=== PATIENT | male | born 1955 | race Caucasian/White ===

== ENCOUNTER 2023-02-23 19:06 | Inpatient (IN) | payer MEDICARE, OTHER ==
[~2023-02-23] VITALS: Ht 175.3 cm; Wt 58.1 kg
[~2023-02-23 19:06] MED LIST: ACET-868 PO; Divalproex Sodium PO; LORA1TAB PO; MAG30ORA PO; MAGN400O21 PO; NICO1PAT28 TD; TEMA15CA PO; [UNRECOGNIZED DRUG - CODE] PO
--- NOTE | 2023-02-23 19:20 | NUR ---
bib39 from [facility] for weakness, tachycardic, incontinent to urine. Patient is AAOX0. Trying to fight everyone instilling care. Safety measures observed. Attached to monitor. Vitals checked.
[2023-02-23] MEDS ORDERED: VANCOMYCIN 1 GM in IV D5W 250 ML IV ONE (19:30)
[2023-02-23] MEDS ORDERED: CEFEPIME 1 GM in IV D5W 50 ML IV ONE (19:30)
[2023-02-23] MEDS ORDERED: ACETAMINOPHEN 650 MG/SUPP.RECT RC ONE ×2 (19:30→19:56)
--- NOTE | 2023-02-23 19:30 | NUR ---
SEEN BY DR ISBELL AT BEDSIDE
--- NOTE | 2023-02-23 19:49 | NUR ---
Tony hoyos in [facility] - 02/23/23 at 1953 by BECKI CAMERON #20G S/L BLOOD COLLECTED AND SENT TO LAB
--- NOTE | 2023-02-23 19:50 | NUR ---
URINE COLLECTED AND SENT TO LAB
--- NOTE | 2023-02-23 19:52 | NUR ---
IV REYMUNDO G18 INSERTED ON RIGHT AC. BLOOD DRAWN AND SENT TO LAB
--- NOTE | 2023-02-23 19:52 | NUR ---
COVID ANTIGEN SWAB COLLECTED AND SENT TO LAB
--- NOTE | 2023-02-23 19:53 | NUR ---
EKG DONE, STRIP ATTACHED TO CHART
--- NOTE | 2023-02-23 19:53 | NUR ---
URINE SPECIMEN SENT TO LAB
[2023-02-23] MEDS ORDERED: VANCOMYCIN 1 GM VIAL ONE (19:56)
[2023-02-23] MEDS ORDERED: CEFEPIME 1 GM VIAL ONE (19:56)
[2023-02-23 20:00] LABS: BASOPHILS % (AUTO) 0.2 % (0.0-2.0); EOSINOPHILS % (AUTO) 0.1 % (0.0-6.0); HEMATOCRIT 47 % (39-51); HEMOGLOBIN 15.1 g/dL (13.5-17.5); LYMPHOCYTES # (AUTO) 0.4 K/uL (0.8-4.8); MEAN CORPUSCULAR HGB CONC 32 g/dl (31.0-36.0); MEAN CORPUSCULAR VOLUME 93 fL (80-96); MONOCYTES # (AUTO) 0.4 K/uL (0.1-1.30); MONOCYTES % (AUTO) 5.1 % (2.0-12.0); NEUTROPHILS # (AUTO) 7.9 K/uL (1.8-8.9); NEUTROPHILS % (AUTO) 89.6 % (43.0-81.0); PLATELET COUNT (AUTO) 203 K/uL (150-450); RED BLOOD CELL COUNT(AUTO) 5.03 MIL/uL (4.5-6.0); WHITE BLOOD COUNT (AUTO) 8.8 K/uL (4.3-11.0)
[2023-02-23] MEDS ORDERED: IV NS 0.9% 2,000 ML IV ONE (20:00)
[2023-02-23 20:14] LABS: CALCIUM, SERUM 9.5 mg/dL (8.5-10.1); CARBON DIOXIDE 29 mmol/L (21-32); CHLORIDE 106 mmol/L (98-107); CREATININE 1.1 mg/dL (0.6-1.3); GLUCOSE 152 mg/dL (74-106); POTASSIUM 3.8 mmol/L (3.5-5.1); SODIUM SERUM 142 mmol/L (136-145); UREA NITROGEN, BLOOD 21 mg/dL (7-18)
[2023-02-23 20:17] LABS: BILIRUBIN,URINE 1+ (NEGATIVE); COLOR,URINE YELLOW (YELLOW); LEUKOCYTE ESTERASE ,URINE NEGATIVE (NEGATIVE); NITRITE, URINE NEGATIVE (NEGATIVE); PROTEIN,URINE TRACE mg/dl (NEGATIVE); UGLUCOSE TRACE mg/dL (NEGATIVE)
[2023-02-23 20:28] LABS: ALANINE AMINOTRANSFERASE 16 U/L (12-78); ALBUMIN 3.6 g/dL (3.4-5.0); ALKALINE PHOSPHATASE 108 U/L (46-116); ASPARTATE AMINOTRANSFERASE 10 U/L (15-37); BILIRUBIN,DIRECT 0.2 mg/dL (0.0-0.2); BILIRUBIN,TOTAL 0.9 mg/dL (0.2-1.0); TOTAL PROTEIN, SERUM 7.8 g/dL (6.4-8.2)
--- NOTE | 2023-02-23 21:05 | NUR ---
REPEAT URINE SPECIMEN SENT TO LAB
--- NOTE | 2023-02-23 21:14 | NUR ---
TRIED TO GIVE REPORT, SABINO MARKS STILL NOT AVAILABLE
[2023-02-23 21:33] LABS: BACTERIA,URINE None seen /HPF (None Seen); MUCUS,URINE Few /LPF (None Seen); RBC,URINE 0-2 /HPF (0-2); SQUAMOUS EPITHELIAL CELL,UR 0-2 /HPF (None Seen); WBC,URINE 0-2 /HPF (0-3)
[2023-02-23 22:30] VITALS: BP 97/58
--- NOTE | 2023-02-23 22:30 | NUR ---
burnt lime drawer opening notes A 67 y/o male came from [facility] admitted for dx sepsis ,pts is alert x1-2 on room air sating 00% v/s stable afebrile pts is no known allergy , on ivf of ns at 75 cc/hr infusing well iv on right ac G3 20 intact and patent all due meds give as ordered, v/s stable afebtile , all needs attended too call light with in reach ,on tele monitor SR on the monitor kept pts comfortable.
--- NOTE | 2023-02-23 22:37 | NUR ---
TRANSFER TO ROOM VIA ACLS PROTOCOL
[2023-02-23] MEDS ORDERED: Z GUARD REMEDY 4 OZ OINT TP PRN (23:00)
[2023-02-23] MEDS ORDERED: ONDANSETRON HCL/PF 4 MG/2 ML VIAL IVP PRN (23:00)
[2023-02-23] MEDS ORDERED: ACETAMINOPHEN 325 MG TABLET PO PRN (23:00)
[2023-02-23] MEDS ORDERED: TEMAZEPAM 15 MG CAPSULE PO PRN (23:00)
[2023-02-23] MEDS ORDERED: HYDROCODONE/APAP 5/325MG TABLET PO PRN (23:00)
[2023-02-23] MEDS ORDERED: MAGNESIUM HYDROXIDE 30 ML UDC PO PRN (23:00)
[2023-02-23] MEDS ORDERED: MAG HYDROX/AL HYDROX/SIMETH 30 ML UDC PO PRN (23:00)
[2023-02-23] MEDS ORDERED: VALPROATE 500 MG/5 ML VIAL IV ONE (23:24)
[2023-02-23] MEDS: VALPROATE 500 MG in IV D5W 100 ML IV SCH (23:30)
[2023-02-24 04:00] VITALS: BP 91/57
[2023-02-24] MEDS: IV NS 0.9% 1,000 ML IV PRN ×2 (05:50→17:48)
--- NOTE | 2023-02-24 06:41 | NUR ---
telephone operator receptionist notes Pts remain in bed awake SR on the monitor remains on ivf ns at 75cc/hr .all needs attended too , call light within reach , will endorse to rn day shift for continuity of care.
[2023-02-24 07:02] LABS: BASOPHILS % (AUTO) 0.3 % (0.0-2.0); EOSINOPHILS % (AUTO) 0.5 % (0.0-6.0); HEMATOCRIT 38 % (39-51); HEMOGLOBIN 12.7 g/dL (13.5-17.5); LYMPHOCYTES # (AUTO) 1.1 K/uL (0.8-4.8); LYMPHOCYTES % (AUTO) 15.1 % (20.0-44.0); MEAN CORPUSCULAR HGB CONC 33 g/dl (31.0-36.0); MEAN CORPUSCULAR VOLUME 92 fL (80-96); MONOCYTES # (AUTO) 0.4 K/uL (0.1-1.30); MONOCYTES % (AUTO) 5.1 % (2.0-12.0); NEUTROPHILS # (AUTO) 5.6 K/uL (1.8-8.9); PLATELET COUNT (AUTO) 165 K/uL (150-450); RED BLOOD CELL COUNT(AUTO) 4.15 MIL/uL (4.5-6.0); WHITE BLOOD COUNT (AUTO) 7.1 K/uL (4.3-11.0)
--- NOTE | 2023-02-24 07:30 | NUR ---
RN OPENING NOTE PT RECEIVED IN BED ON RA TOLERATING WELL WITH NO SIGNS OF DISTRESS OR LABORED BREATHING. PT IS A/OX2 AND NON VERBAL AND ON TELE MONITOR. PT IS ON REGULAR DIET. IV ACCESS R AC INFUSING WITH NS @75ML/HR. BED IS LOCKED IN LOWEST POSITION X2 BED RAILS UP CALL SEGOVIA IS WITHIN REACH AND ALL HOSPITAL SAFETY MEASURES ARE IN PLACE. WILL CONTINUE TO MONITOR THIS SHIFT.
[2023-02-24 07:43] LABS: THYROID STIMULATING HORMONE 2.098 uIU/mL (0.358-3.74)
[2023-02-24 07:46] LABS: CALCIUM, SERUM 8.2 mg/dL (8.5-10.1); CREATININE 0.6 mg/dL (0.6-1.3); MAGNESIUM 1.9 mg/dL (1.8-2.4); PHOSPHORUS 3.1 mg/dL (2.5-4.9); POTASSIUM 3.3 mmol/L (3.5-5.1)
[2023-02-24 08:00] VITALS: BP 113/48
[2023-02-24] MEDS: CEFEPIME 1 GM in IV D5W 50 ML IV SCH ×3 (08:36→23:00)
[2023-02-24] MEDS ORDERED: CEFEPIME 1 GM VIAL IM SCH (09:00)
[2023-02-24] MEDS ORDERED: IV NS 0.9% 250 ML IV PRN (09:00)
[2023-02-24] MEDS: VANCOMYCIN 1 GM in IV D5W 250 ML IV SCH ×2 (09:14→20:48)
[2023-02-24] MEDS: PANTOPRAZOLE 40 MG VIAL IV SCH (09:16)
[2023-02-24] MEDS ORDERED: POTASSIUM CHLORIDE 20 MEQ TAB.PRT.SR PO ONE (10:00)
[2023-02-24] MEDS: VALPROATE 500 MG in IV D5W 100 ML IV SCH ×2 (10:37→20:59)
[2023-02-24 12:00] VITALS: BP 120/52
[2023-02-24 16:00] VITALS: BP 128/70
[2023-02-24] MEDS: LORAZEPAM INJ 2 MG/ML VIAL IV PRN (17:48)
--- NOTE | 2023-02-24 18:21 | NUR ---
RN NOTE: IV ACCESS R AC INFILTRATED; MULTIPLE ATTEMPTS TO INSERT NEW PIV UNSUCCESSFUL. WAITING FOR MIDLINE NURSE.
--- NOTE | 2023-02-24 19:00 | NUR ---
RN NOTES: RECEIVED AWAKE ON BED,A/OX1 TO SELF ONLY, NON VERBAL ONLY COOING AND HUMMING SOUND, ON ROOM AIR, FOR TELE MONITOR BUT PATIENT REFUSED AND REMOVING HIS IV TUBING AND HYDRAULICS ENGINEER, ON BILATERAL SOFT WRIST RESTRAINT(RENEW ON 02/25 AT 1642), PER RN HE WAS ALREADY LISTED FOR MIDLINE INSERTION, BUT NOT SURE WHAT TIME IT WILL BE DONE.TO RESUME IVF OF NS AT 75 ML/HR ONCE IV SITE OBTAINED. ON CLOSE WATCH, HIGH RISK FOR FALL.
[2023-02-24 20:00] VITALS: BP 134/85
--- NOTE | 2023-02-24 20:20 | NUR ---
RN NOTES: FOR MID LINE INSERTION, CN HELP TO INSERT IV CANNULA, 3 ATTEMPTS MADE, HARD STICK, ABLE TO INSERT ON RH G#22, PATENT GOOD BACK FLOW, IV/ATB GIVEN.
--- NOTE | 2023-02-24 23:50 | NUR ---
RN NOTES: ON CLOSE VISUAL CHECK , HE REFUSED FOR HIS TELE-MONITOR, ASLEEP AT SHORT INTERVALS, DUE IV/ATB GIVEN, NO BEHAVIORAL CHANGES NOTED.
[2023-02-25] VITALS: BP 159/82
--- NOTE | 2023-02-25 01:24 | NUR ---
RN NOTES: FOR MIDLINE INSERTION BUT UNCOOPERATIVE AFTER HE WAS AWAKEN, HE STARTED TO GET AGITATED, HE IS KICKING HIS FOOT ON THE FOOT BOARD, PRN FOR SLEEP GIVEN, CN AWARE. HE TOOK IT WITH APPLE SAUCE.
--- NOTE | 2023-02-25 02:10 | NUR ---
RN NOTES: MIDLINE INSERTED BY: DAR COHEN APRN ON YONIS(RIGHT BRACHIAL VEIN) SINGLE LUMEN G#18.
--- NOTE | 2023-02-25 02:26 | NUR ---
RN NOTES: PLACED PILLOW ON THE FOOT BOARD AREA, TO PREVENT HIM FROM KICKING HIS FOOT, ABLE TO SLEEP AND REST, IVF ON NS AT 75 ML/HR CONTINUE, DUE IV/ATB GIVEN.
--- NOTE | 2023-02-25 03:06 | NUR ---
RN NOTES: HE GETS IRRITATED WHENEVER HE FEELS WET AND HE HAD URINE IN HIS BRIEF, CLEAN AND CHANGE, CONDOM CATH INSERTED.
[2023-02-25 04:00] VITALS: BP 142/85
[2023-02-25 05:48] LABS: BASOPHILS % (AUTO) 0.4 % (0.0-2.0); EOSINOPHILS % (AUTO) 0.9 % (0.0-6.0); HEMATOCRIT 41 % (39-51); HEMOGLOBIN 13.5 g/dL (13.5-17.5); LYMPHOCYTES # (AUTO) 0.8 K/uL (0.8-4.8); LYMPHOCYTES % (AUTO) 14.7 % (20.0-44.0); MEAN CORPUSCULAR HGB CONC 33 g/dl (31.0-36.0); MEAN CORPUSCULAR VOLUME 93 fL (80-96); MONOCYTES # (AUTO) 0.3 K/uL (0.1-1.30); MONOCYTES % (AUTO) 5.6 % (2.0-12.0); NEUTROPHILS # (AUTO) 4.5 K/uL (1.8-8.9); NEUTROPHILS % (AUTO) 78.4 % (43.0-81.0); PLATELET COUNT (AUTO) 171 K/uL (150-450); RED BLOOD CELL COUNT(AUTO) 4.37 MIL/uL (4.5-6.0); WHITE BLOOD COUNT (AUTO) 5.7 K/uL (4.3-11.0)
[2023-02-25 06:03] LABS: CREATININE 0.6 mg/dL (0.6-1.3); PHOSPHORUS 3.1 mg/dL (2.5-4.9); POTASSIUM 3.3 mmol/L (3.5-5.1)
--- NOTE | 2023-02-25 06:44 | NUR ---
RN NOTES: AWAKE, KEPT IN HIG FOWLERS POSITION, REFUSED IVF, WILL CONTINUE LATER, UNABLE TO PUT BACK SHELLFISH MEAT SEPARATOR OPERATOR EVERYTIME WE PUT IT, EVEN WITH RESTRAIN HE WAS ABLE TO REMOVE IT, CONTINUE TO MONITOR SOFT RESTRAIN IN BILATERAL HANDS, GOOD CIRCULATION, YONIS ML INTACT AND PATENT, VOIDED 4XM, ASPIRATION PRECAUTION OBSERVED, ENDORSED FOR CONTINUITY OF CARE. Addendum: 02/25/23 at 0658 by JALEEL FELIZ RN ADDED NOTES: BLOOD RESULT IN, ENDORSED TO F/U WITH MD [email or web address].
--- NOTE | 2023-02-25 07:34 | NUR ---
TITLE ABSTRACTOR NOTE PATIENT IN BED ALERT X1 AWAKE ON , ON 2L NC NO SOB NOTED AT THIS TIME VEERY RESTLESS TRYING TO REMOVE ALL LINES AND GET OUT OFF BED , WITH SOFT RESTRAIN ORDERED STILL REMOVE TELE MONITOR RT UPPER ARM MID LINE AND RT HAND HL INTACT, ON IVF ORDERED, BED IN LOWEST AND LOCKED POSITION , SAFETY MEASURE IMPLEMENTED, WILL MONITOR
[2023-02-25 08:00] VITALS: BP 138/79
[2023-02-25] MEDS: PANTOPRAZOLE 40 MG VIAL IV SCH (08:25)
[2023-02-25] MEDS: CEFEPIME 1 GM in IV D5W 50 ML IV SCH ×2 (08:25→15:56)
[2023-02-25] MEDS: VANCOMYCIN 1 GM in IV D5W 250 ML IV SCH ×2 (08:52→20:13)
[2023-02-25] MEDS: ENSURE ENLIVE 237 ML LIQUID (VANILLA) PO SCH ×2 (09:00→16:23)
--- NOTE | 2023-02-25 09:54 | NUR ---
teletypesetter note reported to dr holm that patient removing tele monitor ordered ok to d\c telemetry, will f\u
[2023-02-25] MEDS: VALPROATE 500 MG in IV D5W 100 ML IV SCH (09:56)
[2023-02-25] MEDS ORDERED: POTASSIUM CHLORIDE 20 MEQ POWDER PACKET PO SCH (10:00)
--- NOTE | 2023-02-25 11:25 | NUR ---
teleradiologist note noted cough while eating ,changed to nectar thick liquid,rn support representative Ines at bedside aware of it also notified that patient still very agitated and trying to get out off bed and yelling most of the time,reported to Dana rn not ,Patient removed rt hand hl .will place mittens restrain . will monitor
[2023-02-25 12:00] VITALS: BP 135/70
[2023-02-25] MEDS: NICOTINE PATCH (21MG) 21 MG PATCH.TD24 TD SCH (12:27)
[2023-02-25] MEDS ORDERED: QUETIAPINE FUMARATE 25 MG TABLET PO ONE ×2 (12:30→21:00)
[2023-02-25] MEDS ORDERED: TEMAZEPAM 15 MG CAPSULE PO PRN (12:30)
--- NOTE | 2023-02-25 15:01 | NUR ---
brady lopez note per jessica lewis to place mitnikko restrain ,still trying to remove all lines Addendum: 02/25/23 at 1543 by LUCIANA BENITEZ RN condom cath placed as tolerated
[2023-02-25 16:00] VITALS: BP 136/80
--- NOTE | 2023-02-25 18:27 | NUR ---
senior telecommunications specialist note patient in bed awake alert with confusion and agitation trying to get out off bed , fed patient, able to eat6 75 % of food ,keep hob elevated, aspiration precaution observed , removed mittens from patient while eating checked for circulation , skin warm and dry ,bed alarm os on, safety measure implemented on 2l nc no sob noted at this time, rt upper arm mid line in place and flushed well bed in lowest and locked position, will cont to monitor
--- NOTE | 2023-02-25 19:48 | NUR ---
ALLOPATHIC DOCTOR OPENING NOTES RECEIVED PATIENT IN BED, AWAKE, ALERT X1-2 WITH CONFUSION AND VERBALLY RESPONSIVE. ON 2L/MIN VIA N/C AND PT TOLERATED WELL. CONTINUOUSLY TRIED TO GET UP FROM THE BED. VERY RESTLESS. BOTH MITTENS ON. IV ACCESS ON RT UPPER ARM MID LINE INTACT AND PATENT. RUNNING NS AT 75CC/HR. NO C/O PAIN OR DISCOMFORT NO CUTE DISTRESS. ALL SAFETY MEASURES IN PLACE. BED IN LOWEST AND LOCKED POSITION. SIDE RAILS UP X3, PLACE CALL LIGHT WITH IN REACH. WILL CONTINUE TO MONITOR.
[2023-02-25] MEDS: DIVALPROEX SODIUM 500 MG TABLET.DR PO SCH (20:37)
[2023-02-25] MEDS ORDERED: VALPROIC ACID 250 MG/5 ML UDC PO SCH (21:00)
--- NOTE | 2023-02-25 21:04 | NUR ---
RN NOTES: NOTIFIED DR. STEWART, PT STILL VERY AGITATED, BOTH MITTENS ON. TRIED TO GET UP FROM THE BED. DR. STEWART ORDERED- ACUTE SOFT BILATERAL RESTRAINTS ON AND SEROQUEL 25 MG TAB ONE TIME. ORDER NOTED AND CARRIED OUT.
[2023-02-25 22:00] VITALS: BP 124/77
[2023-02-25] MEDS: IV NS 0.9% 1,000 ML IV PRN (22:52)
[2023-02-26] MEDS: CEFEPIME 1 GM in IV D5W 50 ML IV SCH ×3 (00:24→16:09)
[2023-02-26 04:00] VITALS: BP 96/63
--- NOTE | 2023-02-26 06:39 | NUR ---
FLIGHT LINE SERVICE ATTENDANT CLOSING NOTES PATIENT IN BED, AWAKE, ALERT X1-2 WITH CONFUSION AND VERBALLY RESPONSIVE. ON 2L/MIN VIA N/C AND PT TOLERATED WELL. O2 SAT 92%. IV ACCESS ON RT UPPER ARM MID LINE INTACT AND PATENT. RUNNING NS AT 75CC/HR. NO C/O PAIN OR DISCOMFORT NO CUTE DISTRESS. BILATERAL SOFT RESTRAINTS ON. RELEASED Q 2 HOURS TO ASSESS THE CIRCULATION. ALL DUE MEDS GIVEN ORDERED. ALL SAFETY MEASURES IN PLACE. BED IN LOWEST AND LOCKED POSITION. SIDE RAILS UP X3, PLACE CALL LIGHT WITH IN REACH. WILL ENDORSE TO MORNING SHIFT NURSE.
[2023-02-26 08:04] LABS: BASOPHILS % (AUTO) 0.2 % (0.0-2.0); HEMATOCRIT 42 % (39-51); HEMOGLOBIN 14.2 g/dL (13.5-17.5); LYMPHOCYTES # (AUTO) 0.9 K/uL (0.8-4.8); LYMPHOCYTES % (AUTO) 15.1 % (20.0-44.0); MEAN CORPUSCULAR HGB CONC 34 g/dl (31.0-36.0); MEAN CORPUSCULAR VOLUME 91 fL (80-96); MONOCYTES # (AUTO) 0.5 K/uL (0.1-1.30); MONOCYTES % (AUTO) 8.5 % (2.0-12.0); NEUTROPHILS # (AUTO) 4.3 K/uL (1.8-8.9); NEUTROPHILS % (AUTO) 75.2 % (43.0-81.0); PLATELET COUNT (AUTO) 174 K/uL (150-450); RED BLOOD CELL COUNT(AUTO) 4.66 MIL/uL (4.5-6.0); WHITE BLOOD COUNT (AUTO) 5.8 K/uL (4.3-11.0)
[2023-02-26 08:39] LABS: CALCIUM, SERUM 9.1 mg/dL (8.5-10.1); CREATININE 0.6 mg/dL (0.6-1.3); MAGNESIUM 2.1 mg/dL (1.8-2.4); PHOSPHORUS 3.7 mg/dL (2.5-4.9); POTASSIUM 3.2 mmol/L (3.5-5.1)
[2023-02-26] MEDS: ENSURE ENLIVE 237 ML LIQUID (VANILLA) PO SCH ×2 (08:51→17:47)
[2023-02-26] MEDS ORDERED: PANTOPRAZOLE 40 MG/PACK PACK PO SCH (09:00)
[2023-02-26] MEDS: LORAZEPAM INJ 2 MG/ML VIAL IV PRN (09:09)
[2023-02-26] MEDS: NICOTINE PATCH (21MG) 21 MG PATCH.TD24 TD SCH (09:14)
[2023-02-26] MEDS: DIVALPROEX SODIUM 500 MG TABLET.DR PO SCH (09:14)
[2023-02-26] MEDS: VANCOMYCIN 1 GM in IV D5W 250 ML IV SCH (09:38)
[2023-02-26] MEDS ORDERED: POTASSIUM CL. PREMIX PERIPHER. 50 ML IV SCH (10:30)
[2023-02-26] MEDS ORDERED: AMOX500T2 PO (11:37)
[2023-02-26 12:00] VITALS: BP 96/63
--- NOTE | 2023-02-26 18:13 | NUR ---
RN NOTES supervisor fleshing ARRIVED FOR TRANSPORT TO [facility] , PICC LINE INTACT REPORT UPPER ARM, CONDUM CATH D/C SITE IS CLEAR CLEAN DRY, INTACT NO REDNESS NO IRRITATION NOTED ON PRIVATE AREAS, REPORT GIVEN TO LIA GALLO , SAFE TRANSFER FROM [facility] TO EMT [facility], TO AMBULANCE
--- NOTE | 2023-02-26 18:26 | NUR ---
RN NOTES PT TRANSFERRED TO [facility] [phone] REPORT GIVEN TO RN AND GIVEN CALL BACK # WITH ANY OTHERS QUESTIONS.
== END 2023-02-26 18:47 | DRG 871 ==
LOC: ER 19:28 → TELE1 21:38 → MEDSG1 02-25 09:25
PROVIDERS: ADMIT Nurse Practitioner Acute Care; ATTEND Nurse Practitioner Acute Care
PROC: 05H933Z Insertion of Infusion Device into Right Brachial Vein, Percutaneous Approach (ICD-10-PCS; principal; 2023-02-25)
DX: A41.9 Sepsis, unspecified organism (principal); G92.8 Other toxic encephalopathy; J69.0 Pneumonitis due to inhalation of food and vomit; F03.93 Unspecified dementia, unspecified severity, with mood disturbance; E87.20 Acidosis, unspecified; Z20.822 Contact with and (suspected) exposure to COVID-19; K21.9 Gastro-esophageal reflux disease without esophagitis; R32 Unspecified urinary incontinence; G40.909 Epilepsy, unspecified, not intractable, without status epilepticus; M19.90 Unspecified osteoarthritis, unspecified site; F17.200 Nicotine dependence, unspecified, uncomplicated; F20.9 Schizophrenia, unspecified; Z79.899 Other long term (current) drug therapy; Z87.820 Personal history of traumatic brain injury; Z98.890 Other specified postprocedural states; G93.89 Other specified disorders of brain; F31.9 Bipolar disorder, unspecified
CPT/HCPCS: 36415; 71045-TC; 80048-TC; 80061-TC; 80076-TC; 80202-TC; 81001; 83605-TC; 83735-TC; 83880; 84100-TC; 84443-TC; 84484-TC; 85025-TC; 85730-TC; 87040-TC; 87081-TC; 87086-TC; 92526; 92611-TC; A4223; A4349; C9113; C9803; G0378; J0692; J2060; J3370; J3490; J7030; J7050; J7060

== ENCOUNTER 2023-02-26 22:13 | Inpatient (IN) | payer MEDICARE, OTHER ==
[~2023-02-26] VITALS: Ht 167.6 cm; Wt 55.8 kg
[~2023-02-26 22:13] MED LIST changes: +AMOX500T2 PO
--- NOTE | 2023-02-26 22:29 | NUR ---
ANIRUDH FROM [facility] C/O AGGITATION TO RESIDENTS AND STAFF. HX BIPOLAR, SCHIZOPHRENIA. PT D/C TODAY [facility] FOR SEPSIS. PT DEAF. TOLERATING R/A WELL WITH NO RESP DISTRESS. SAFETY MEASURES IN PLACE.
--- NOTE | 2023-02-26 23:20 | NUR ---
COVID SWAB DONE AND SENT TO LAB
--- NOTE | 2023-02-26 23:25 | NUR ---
PT UNABLE TO PROVIDE URINE AT THIS TIME.
--- NOTE | 2023-02-26 23:25 | NUR ---
PT RECEIVED IN BED, AWAKE, A/O X1, DEAF; ABLE TO READ LIPS. LAB AT BEDSIDE
--- NOTE | 2023-02-26 23:32 | NUR ---
[employer]S CLERK AT PT'S BEDSIDE
[2023-02-27 00:08] LABS: CALCIUM, SERUM 9.4 mg/dL (8.5-10.1); CARBON DIOXIDE 26 mmol/L (21-32); CHLORIDE 110 mmol/L (98-107); CREATININE 0.9 mg/dL (0.6-1.3); GLUCOSE 157 mg/dL (74-106); POTASSIUM 3.5 mmol/L (3.5-5.1); SODIUM SERUM 145 mmol/L (136-145); UREA NITROGEN, BLOOD 8 mg/dL (7-18)
[2023-02-27 00:23] LABS: ACETAMINOPHEN < 10 ug/ml (10-30); ALANINE AMINOTRANSFERASE 13 U/L (12-78); ALBUMIN 2.8 g/dL (3.4-5.0); ALKALINE PHOSPHATASE 75 U/L (46-116); ASPARTATE AMINOTRANSFERASE 12 U/L (15-37); BILIRUBIN,DIRECT 0.1 mg/dL (0.0-0.2); BILIRUBIN,TOTAL 0.5 mg/dL (0.2-1.0); TOTAL PROTEIN, SERUM 6.5 g/dL (6.4-8.2)
[2023-02-27 01:06] LABS: ALCOHOL, BLOOD < 3 mg/dL (0-0)
[2023-02-27 01:17] LABS: BASOPHILS % (AUTO) 0.3 % (0.0-2.0); EOSINOPHILS % (AUTO) 0.6 % (0.0-6.0); HEMATOCRIT 42 % (39-51); LYMPHOCYTES # (AUTO) 0.9 K/uL (0.8-4.8); LYMPHOCYTES % (AUTO) 17.5 % (20.0-44.0); MEAN CORPUSCULAR HGB CONC 34 g/dl (31.0-36.0); MEAN CORPUSCULAR VOLUME 90 fL (80-96); MONOCYTES # (AUTO) 0.4 K/uL (0.1-1.30); MONOCYTES % (AUTO) 8.5 % (2.0-12.0); NEUTROPHILS # (AUTO) 3.5 K/uL (1.8-8.9); NEUTROPHILS % (AUTO) 73.1 % (43.0-81.0); PLATELET COUNT (AUTO) 177 K/uL (150-450); WHITE BLOOD COUNT (AUTO) 4.9 K/uL (4.3-11.0)
--- NOTE | 2023-02-27 02:38 | NUR ---
URINE COLLECTED AND SENT TO LAB
[2023-02-27 04:05] LABS: BILIRUBIN,URINE NEGATIVE (NEGATIVE); COLOR,URINE YELLOW (YELLOW); LEUKOCYTE ESTERASE ,URINE NEGATIVE (NEGATIVE); NITRITE, URINE NEGATIVE (NEGATIVE); PROTEIN,URINE NEGATIVE (NEGATIVE); UGLUCOSE NEGATIVE (NEGATIVE); UROBILINOGEN,URINE 0.2 EU/dL (0.2)
[2023-02-27 04:54] LABS: BACTERIA,URINE Few /HPF (None Seen); RBC,URINE 0-2 /HPF (0-2); SQUAMOUS EPITHELIAL CELL,UR Few /HPF (None Seen); WBC,URINE NONE SEEN /HPF (0-3)
[2023-02-27 04:55] LABS: COARSE GRANULAR CASTS,URINE Few /LPF (None Seen)
[2023-02-27] MEDS ORDERED: DOXYCYCLINE HYCLATE (100 MG) 100 MG TABLET PO ONE (05:30)
[2023-02-27] MEDS ORDERED: DOXYCYCLINE HYCLATE (100 MG) 100 MG TABLET ONE (05:32)
--- NOTE | 2023-02-27 06:07 | NUR ---
CRISIS TEAM ANTON CALLED FOR PSYCH EVAL. SHE IS ON HER WAY, GAVE NO ETA.
--- NOTE | 2023-02-27 06:53 | NUR ---
ANTON SHERIFF OFFICER CRISIS TEAM IN ER DEPT TO [facility]
--- NOTE | 2023-02-27 07:56 | NUR ---
COVID TEST DONE SENT TO LAB
--- NOTE | 2023-02-27 08:15 | NUR ---
GOT BED 213-A ADMITTING INFORMED.
--- NOTE | 2023-02-27 08:32 | NUR ---
TRIED TO GIVE REPORT , NURSES ARE STILL BUSY, WAS ASKED TO CALL BACK AFTER 15MIN
--- NOTE | 2023-02-27 09:22 | NUR ---
REPORT GIVEN TO GPS FLOOR NURSE
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
--- NOTE | 2023-02-27 09:39 | NUR ---
MOVED TO INPATIENT ROOM SAFELY PER PROTOCOL
[2023-02-27] MEDS: DIVALPROEX SODIUM 500 MG TABLET.DR PO SCH ×2 (10:30→21:07)
[2023-02-27] MEDS ORDERED: MAGNESIUM HYDROXIDE 30 ML UDC PO PRN (12:00)
[2023-02-27] MEDS ORDERED: ACETAMINOPHEN 325 MG TABLET PO PRN (12:00)
[2023-02-27] MEDS ORDERED: MAG HYDROX/AL HYDROX/SIMETH 30 ML UDC PO PRN (12:00)
[2023-02-27] MEDS ORDERED: BLOOD SUGAR DIAGNOSTIC 1 EACH STRIP IN ONE (12:00)
--- NOTE | 2023-02-27 13:30 | NUR ---
Treatment Plan: Pt unable to sign treatment plan due to confusion. Pt unable to comprehend.
--- NOTE | 2023-02-27 13:30 | NUR ---
COLE Initial Discharge Note: Pt currently resides at [facility]F located at [id number] [place] [id number]; . COLE contacted Horacio from admissions ([phone]) and he stated pt is welcomed back when stable. He stated that they had pt for one day and that pt was from [facility] ([phone]). COLE contacted [facility] and spoke with Jhoana who stated that they do not have any information about this pt. COLE will work with MD, pt, and family to help coordinate appropriate discharge.
--- NOTE | 2023-02-27 13:33 | NUR ---
COLE Clinical Note: Pt placed on a 5150 hold for GD. Per hold, pt was aggressive at his facility. Pt currently resides at [facility] located at [address] [place] [address]; . COLE contacted Horacio from admissions ([phone]) and he stated pt is welcomed back when stable. He stated that they had pt for one day and that pt was from [facility] ([phone]). COLE contacted [facility] and spoke with Jhoana who stated that they do not have any information about this pt.
--- NOTE | 2023-02-27 13:33 | NUR ---
Family Contact: SW attempted to contact Ellie ([phone]), unknown relationship, person to notify. SW left a detailed voicemail.
[2023-02-27 16:00] VITALS: BP 100/60
[2023-02-27 19:42] VITALS: BP 100/64
[2023-02-27] MEDS: ZOLPIDEM TARTRATE 5 MG TABLET PO PRN (21:08)
[2023-02-27] MEDS: MIRTAZAPINE 15 MG TABLET PO SCH (21:08)
[2023-02-27] MEDS: LORAZEPAM 0.5 MG TABLET PO PRN (23:04)
[2023-02-28 08:00] VITALS: BP 151/83
[2023-02-28 08:29] LABS: BILIRUBIN,TOTAL 0.3 mg/dL (0.2-1.0); CALCIUM, SERUM 9.2 mg/dL (8.5-10.1); POTASSIUM 3.4 mmol/L (3.5-5.1); TOTAL PROTEIN, SERUM 6.9 g/dL (6.4-8.2)
--- NOTE | 2023-02-28 09:25 | NUR ---
RN-NOTES AROUND 0820 PATIENT EATING IN HIS ROOM AND BISCUIT FACTORY WORKER HEARD PATIENT IS GAGGING SOUND,BISCUIT FACTORY WORKER DID CHECK AND PATIENT IS HOLDING HIS NECK AND TURNING TO BLUE,CALL RAPID RESPONSE . PATIENT PERFORM HEIMLICH MANEUVER ,CHUNK OF FOOD CAME OUT, AROUND 0825 RAPID RESPONSE STAFF INCLUDING PIPE COREMAKER ARRIVED BUT PATIENT MANAGE TO COUGH OUT MORE FOOD AND ABLE RESPOND. RAPID RESPONSE CLEARED. RESOURCE ENGINEER SABA ( DIGITAL PERFORMANCE ANALYST) NOTIFIED WITH ORDERS. BISCUIT FACTORY WORKER AND CHARGE NURSE AND CAKE STRIPPER ASSISTED PATIENT BACK IN HIS BED. WILL CONT.MONITORING FOR ANY ADVERSE CHANGES.AND SAFETY.
[2023-02-28] MEDS ORDERED: POTASSIUM CHLORIDE 20 MEQ TAB.PRT.SR PO SCH (09:30)
--- NOTE | 2023-02-28 09:47 | NUR ---
RN NOTES ( BRE) ST STAFF AT BEDSIDE .
[2023-02-28 09:50] LABS: CHOLESTEROL 142 mg/dL (<200); HDL CHOLESTEROL 32 mg/dL (40-60); LDL 100 mg/dL (0-99); TRIGLYCERIDES 118 mg/dL (30-150)
[2023-02-28] MEDS ORDERED: POTASSIUM CHLORIDE 20 MEQ POWDER PACKET PO ONE (10:00)
--- NOTE | 2023-02-28 10:01 | NUR ---
RN-NOTES RECEIVED T.O ORDER FROM DR. MELO TO CHANGE DEPAKOTE DR 500MG P.O TO DEPAKOTE SPRINKLE 500MG P.O Q12 HR. NOTED AND CARRIED OUT.
--- NOTE | 2023-02-28 10:29 | NUR ---
RN-NOTES K-DUR 20 MEQ TAB.NOT ADMINISTER DUE TO IT WAS CHANGE TO POWDER FORM.
[2023-02-28] MEDS: DIVALPROEX SODIUM 125 MG CAP.SPRINK PO SCH ×2 (10:42→21:50)
[2023-02-28] MEDS ORDERED: BISMUTH SUBSALICYLATE 262 MG/15 ML BOTTLE PO PRN (12:00)
[2023-02-28] MEDS: AMOX/CLAVULANATE 875 MG TABLET PO SCH ×2 (12:44→21:54)
[2023-02-28] MEDS: LORAZEPAM 0.5 MG TABLET PO PRN (15:10)
--- NOTE | 2023-02-28 15:20 | NUR ---
RN-NOTES NOTED PATIENT RESPONDING TO INTERNAL STIMULI, TALKING TO SELF BANGING TABLE WITH RIGHT HAND. REDIRECTED AND ATIVAN 1MG P.O GIVEN PRN ORDER. WILL CONT. MONITORING FOR SAFETY AND BEHAVIOR.
[2023-02-28 16:00] VITALS: BP 109/72
--- NOTE | 2023-02-28 17:11 | NUR ---
RN-NOTES PATIENT IN THE DAY ROOM UP IN THE LUPIS CHAIR,GUARDED, A/O X1 FORGETFUL,EASILY IRRITABLE AND AGITATED .COMPLIANT WITH MEDICATIONS.NEEDS FREQUENT REDIRECTION AND ORIENTATION.NOTED PATIENT RESPONDING TO INTERNAL STIMULI. NEEDS MODERATE ASSIST IN AMBULATION AND ADL'S. ALL NEEDS ATTENDED AND ANTICIPATED. WILL ENDORSE TO INCOMING NURSE FOR CONTINUITY OF CARE.
[2023-02-28 20:33] VITALS: BP 128/78
[2023-02-28] MEDS ORDERED: DIVALPROEX SODIUM 125 MG CAP.SPRINK PO SCH ×2 (21:00)
[2023-02-28] MEDS: MIRTAZAPINE 15 MG TABLET PO SCH (21:49)
[2023-02-28] MEDS: ZOLPIDEM TARTRATE 5 MG TABLET PO PRN (21:50)
--- NOTE | 2023-02-28 21:51 | NUR ---
Pt unable to sleep. Least restrictive measures ineffective. Ambien 5 mg po prn given as ordered. Will continue to monitor.
--- NOTE | 2023-02-28 23:00 | NUR ---
Post 1 hr Ambien effective. Pt asleep in bed easy to arouse. Bed at low position and bed alarm on. Frequent visual check done for safety. Will continue to monitor. Will endorse to next shift.
[2023-03-01 08:00] VITALS: BP 121/72
[2023-03-01] MEDS: LORAZEPAM 0.5 MG TABLET PO PRN ×2 (09:01→17:02)
[2023-03-01] MEDS: AMOX/CLAVULANATE 875 MG TABLET PO SCH ×2 (09:01→20:23)
[2023-03-01] MEDS: NICOTINE PATCH (21MG) 21 MG PATCH.TD24 TD SCH (09:02)
[2023-03-01] MEDS: DIVALPROEX SODIUM 125 MG CAP.SPRINK PO SCH ×2 (09:03→20:30)
--- NOTE | 2023-03-01 09:05 | NUR ---
Resident noted with episode of anxiety and agitation, banging wall with right hand, denies pain in right hand, redirected and PRN Ativan given as ordered, will monitor.
--- NOTE | 2023-03-01 10:00 | NUR ---
Post 1 hr Ativan effective. Pt asleep in bed easy to arouse. Bed at low position and bed alarm on. Frequent visual check done for safety. Will continue to monitor.
--- NOTE | 2023-03-01 13:54 | NUR ---
RN NOTES RECEIVED REPORT FROM STACEY WILKES FOR KAILASH
[2023-03-01 16:00] VITALS: BP 128/78
--- NOTE | 2023-03-01 16:13 | NUR ---
Facility Contact: SW was provided of pt's board and care [facility] ([phone]) and they were unavailable. SW left a voicemail.
--- NOTE | 2023-03-01 18:54 | NUR ---
RN NOTES PT RESTING IN BED, GETS AGITATED EASILY. BANGS ON THE GERICHAIR AND WALL. SOMETIMES COOPERATIVE AND AMIABLE. MED COMPLIANT. ALL NEEDS MET. NOT IN ANY DISTRESS. WILL ENDORSE TO NEXT SHIFT FOR KAILASH.
[2023-03-01 20:00] VITALS: BP 150/88
--- NOTE | 2023-03-01 20:05 | NUR ---
RN NOTES: RECEIVED PATIENT RESTING IN HIS ROOM, A/OX1. NO S/SX OF ACUTE DISTRESS NOTED. PATIENT IS ,CONFUSED, FORGETFUL ANXIOUS, EASILY AGITATED ,YELLING SCREAMING , LOUD TALIKG TO SELF , HYPERVERBAL, UNCOOPERTIVE, PARANOID , GUARDED NON REDIRECTABLE,NEEDS FREQUENTLY REDIRECTIONS, ENCOURAGED TO VERBALIZED ANY FEELING OR CONCERN ,SAFETY PRECAUTIONS MAINTAINED. WILL CONTINUE TO MONITOR Q15MIN ROUNDS FOR SAFETY.
[2023-03-01] MEDS: MIRTAZAPINE 15 MG TABLET PO SCH (21:09)
--- NOTE | 2023-03-01 21:43 | NUR ---
RN NOTES: REFUSED SKIN ASSESSMENT PT. REFUSED FULL BODY SKIN ASSESSMENT, AND PHOTOS TAKEN, RECOURAGED X3 RISKS AND BENEFITS EAXPLAINED,PT. STRONGLY REFUSED,PER PT.STATES MY SKIN IS FINE, PT. BEHAVIOR VERY UNCCOOPERTIVE,YELLING SCREAMING ANXIOUS, PARANOID, NONREDIRECTABLE .
[2023-03-01] MEDS: ZOLPIDEM TARTRATE 5 MG TABLET PO PRN (23:14)
--- NOTE | 2023-03-01 23:14 | NUR ---
RN NOTES: INSOMNIA PT. C/O UNABLE TO SLEEP ,PRN AMBIEN 5 MG PO GIVEN PER PT. REQUEST, WILL CONTINUE TO MONITOR.
--- NOTE | 2023-03-01 23:54 | NUR ---
RN NOTES: REFUSED SKIN ASSESSMENT PT. REFUSED FULL BODY SKIN ASSESSMENT, AND PHOTOS TAKEN, ENCOURAGED X3 RISKS AND BENEFITS EAXPLAINED,PT. STRONGLY REFUSED,PER PT.STATES MY SKIN IS FINE, PT. BEHAVIOR VERY UNCCOOPERTIVE,YELLING SCREAMING ANXIOUS, PARANOID, NONREDIRECTABLE .ARGUMENTATIVE WITH STAFF, WHEN OFFERD SKIN ASSESSMENT, PT. WAS TRYING TO KICKING,HITTING THE STAFF. PT. VISUALLY NOTED WITH , FACE REDNESS, SCRATCHES , SCABS , BUTTOCKS, SACRAL REDNESS, AND WOUND CONSULT AND Z-GUARD ORDERD.
[2023-03-02] MEDS ORDERED: Z GUARD REMEDY 4 OZ OINT TP PRN
[2023-03-02] MEDS: LORAZEPAM 0.5 MG TABLET PO PRN ×3 (06:36→20:15)
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
[2023-03-02 08:00] VITALS: BP 130/83
[2023-03-02] MEDS: DIVALPROEX SODIUM 125 MG CAP.SPRINK PO SCH ×2 (08:38→20:59)
[2023-03-02] MEDS: Z GUARD REMEDY 4 OZ OINT TP SCH (08:39)
[2023-03-02] MEDS: NICOTINE PATCH (21MG) 21 MG PATCH.TD24 TD SCH (08:39)
[2023-03-02] MEDS: AMOX/CLAVULANATE 875 MG TABLET PO SCH ×2 (09:49→21:02)
[2023-03-02 16:00] VITALS: BP 135/90
[2023-03-02 20:00] VITALS: BP 126/76
--- NOTE | 2023-03-02 20:17 | NUR ---
RN NOTES: ANXIETY PT. BEHAVIOR VERY ANXIOUS, UNCCOOPERTIVE,YELLING SCREAMING ANXIOUS, PARANOID, NONREDIRECTABLE .ARGUMENTATIVE WITH STAFF, WHEN BRUNO WAS PROVIDING, PRN ATIVAN 1 MG PO GIVEN FOR PT BEHAVIOR, WILL CONTINUE TO MONITOR.
[2023-03-02] MEDS: MIRTAZAPINE 15 MG TABLET PO SCH (21:03)
[2023-03-02] MEDS: ZOLPIDEM TARTRATE 5 MG TABLET PO PRN (22:59)
--- NOTE | 2023-03-02 22:59 | NUR ---
RN NOTES: INSOMNIA PT. C/O UNABLE TO SLEEP ,PRN AMBIEN 5 MG PO GIVEN PER PT. REQUEST, WILL CONTINUE TO MONITOR.
[2023-03-03] MEDS: DIVALPROEX SODIUM 125 MG CAP.SPRINK PO SCH ×2 (07:42→20:57)
[2023-03-03] MEDS: NICOTINE PATCH (21MG) 21 MG PATCH.TD24 TD SCH (07:42)
[2023-03-03] MEDS: LORAZEPAM 0.5 MG TABLET PO PRN (07:42)
[2023-03-03] MEDS: AMOX/CLAVULANATE 875 MG TABLET PO SCH ×2 (07:42→20:57)
[2023-03-03] MEDS: Z GUARD REMEDY 4 OZ OINT TP SCH (07:43)
[2023-03-03 08:00] VITALS: BP 117/69
[2023-03-03 16:00] VITALS: BP 94/68
[2023-03-03 16:48] LABS: BASOPHILS % (AUTO) 0.4 % (0.0-2.0); EOSINOPHILS % (AUTO) 1.6 % (0.0-6.0); HEMATOCRIT 44 % (39-51); HEMOGLOBIN 14.5 g/dL (13.5-17.5); LYMPHOCYTES # (AUTO) 1.6 K/uL (0.8-4.8); LYMPHOCYTES % (AUTO) 24.6 % (20.0-44.0); MEAN CORPUSCULAR HGB CONC 33 g/dl (31.0-36.0); MEAN CORPUSCULAR VOLUME 92 fL (80-96); MONOCYTES # (AUTO) 0.6 K/uL (0.1-1.30); MONOCYTES % (AUTO) 8.3 % (2.0-12.0); NEUTROPHILS # (AUTO) 4.3 K/uL (1.8-8.9); NEUTROPHILS % (AUTO) 65.1 % (43.0-81.0); PLATELET COUNT (AUTO) 227 K/uL (150-450); RED BLOOD CELL COUNT(AUTO) 4.78 MIL/uL (4.5-6.0); WHITE BLOOD COUNT (AUTO) 6.7 K/uL (4.3-11.0)
[2023-03-03 17:02] LABS: ALBUMIN 3.5 g/dL (3.4-5.0); BILIRUBIN,TOTAL 0.4 mg/dL (0.2-1.0); CALCIUM, SERUM 9.5 mg/dL (8.5-10.1); CREATININE 1.1 mg/dL (0.6-1.3); POTASSIUM 4.1 mmol/L (3.5-5.1); TOTAL PROTEIN, SERUM 7.4 g/dL (6.4-8.2)
[2023-03-03 20:37] VITALS: BP 96/69
[2023-03-03] MEDS: MIRTAZAPINE 15 MG TABLET PO SCH (21:14)
[2023-03-04 08:00] VITALS: BP 137/86
[2023-03-04] MEDS: DIVALPROEX SODIUM 125 MG CAP.SPRINK PO SCH ×2 (08:19→20:47)
[2023-03-04] MEDS: Z GUARD REMEDY 4 OZ OINT TP SCH (08:19)
[2023-03-04] MEDS: LORAZEPAM 0.5 MG TABLET PO PRN (08:19)
[2023-03-04] MEDS: NICOTINE PATCH (21MG) 21 MG PATCH.TD24 TD SCH (08:19)
[2023-03-04] MEDS: AMOX/CLAVULANATE 875 MG TABLET PO SCH ×2 (08:20→20:47)
[2023-03-04 16:00] VITALS: BP 114/76
[2023-03-04 20:57] VITALS: BP 120/76
[2023-03-05] MEDS: NICOTINE PATCH (21MG) 21 MG PATCH.TD24 TD SCH (08:34)
[2023-03-05] MEDS: DIVALPROEX SODIUM 125 MG CAP.SPRINK PO SCH ×2 (08:35→21:00)
[2023-03-05] MEDS: Z GUARD REMEDY 4 OZ OINT TP SCH (08:40)
[2023-03-05] MEDS: AMOX/CLAVULANATE 875 MG TABLET PO SCH ×2 (09:07→21:51)
[2023-03-05] MEDS: VITAMINS A AND D 56.7 GM TUBE TP SCH (09:10)
[2023-03-05 09:41] VITALS: BP 105/61
--- NOTE | 2023-03-05 11:19 | NUR ---
Court Hearing: Patient's court hearing for 3800 was today and it was upheld for GD.
--- NOTE | 2023-03-05 11:19 | NUR ---
Court Notification: Pt has no supportive contact at this time.
--- NOTE | 2023-03-05 13:14 | NUR ---
Facility Contact: SW received a call from [facility] living from [facility] [place] [facility] ([phone]) who stated that this is her patient of 3 years and stated that they are able to manage pt. She stated pt is welcomed back when stable and they will provide transportation upon dc. She expressed that pt currently does not have any supportive contact. She stated that pt speaks to brother but not always.
[2023-03-05 16:00] VITALS: BP 105/57
[2023-03-06 08:00] VITALS: BP 129/58
[2023-03-06] MEDS: DIVALPROEX SODIUM 125 MG CAP.SPRINK PO SCH ×2 (09:00→21:06)
[2023-03-06] MEDS: NICOTINE PATCH (21MG) 21 MG PATCH.TD24 TD SCH (09:03)
[2023-03-06] MEDS: AMOX/CLAVULANATE 875 MG TABLET PO SCH ×2 (09:03→21:08)
[2023-03-06] MEDS: Z GUARD REMEDY 4 OZ OINT TP SCH (09:04)
[2023-03-06] MEDS: VITAMINS A AND D 56.7 GM TUBE TP SCH (09:30)
[2023-03-06 16:00] VITALS: BP 117/87
[2023-03-06] MEDS: ENSURE ENLIVE 237 ML LIQUID (VANILLA) PO SCH (17:44)
[2023-03-06 20:18] VITALS: BP 118/77
[2023-03-07 08:00] VITALS: BP 110/66
[2023-03-07] MEDS: NICOTINE PATCH (21MG) 21 MG PATCH.TD24 TD SCH (08:53)
[2023-03-07] MEDS: AMOX/CLAVULANATE 875 MG TABLET PO SCH (08:54)
[2023-03-07] MEDS: DIVALPROEX SODIUM 125 MG CAP.SPRINK PO SCH ×2 (08:54→20:29)
[2023-03-07] MEDS: ENSURE ENLIVE 237 ML LIQUID (VANILLA) PO SCH ×2 (08:55→17:16)
[2023-03-07] MEDS: VITAMINS A AND D 56.7 GM TUBE TP SCH (08:55)
[2023-03-07] MEDS: Z GUARD REMEDY 4 OZ OINT TP SCH (08:55)
[2023-03-07 16:00] VITALS: BP 105/56
[2023-03-07 20:21] VITALS: BP 122/75
--- NOTE | 2023-03-08 07:21 | NUR ---
GPS RN OPENING NOTE RECEIVED PATIENT IN BED, PATIENT IS A/O X2. NO S/SX OF ACUTE DISTRESS NOTED. PATIENT WITH PLEASANT DISPOSITION. PATIENT FOR DISCHARGE AT 1300H. COMFORT MEASURES PROVIDED. SAFETY MEASURE PROVIDED, WITH SIDERAILS RAISED, BED IN LOW LOCKED POSITION. IN STABLE CONDITION. WILL CONTINUE WITH PLAN OF CARE.
[2023-03-08 08:00] VITALS: BP 107/61
[2023-03-08] MEDS: NICOTINE PATCH (21MG) 21 MG PATCH.TD24 TD SCH (08:00)
[2023-03-08] MEDS: ENSURE ENLIVE 237 ML LIQUID (VANILLA) PO SCH (08:00)
[2023-03-08] MEDS: DIVALPROEX SODIUM 125 MG CAP.SPRINK PO SCH (08:00)
[2023-03-08] MEDS: VITAMINS A AND D 56.7 GM TUBE TP SCH (08:01)
[2023-03-08] MEDS: Z GUARD REMEDY 4 OZ OINT TP SCH (08:01)
--- NOTE | 2023-03-08 08:04 | NUR ---
SW Discharge Note: Patient will be discharged to his Assisted Living [facility] located at [address] [place] [address]; ([phone]). Admin Nieva ([phone]) will provide transportation at 1PM. Admin Nieva at [facility] ([phone]) stated pt is welcomed back today. Patient has no supportive contact at this time. Patient appears to be alert and oriented x2. Patient denies suicidal or homicidal ideation. Patient denies visual/auditory hallucinations. Patient will follow up with primary doctor, Dr. Soria at the facility [address] [place] [address] who will monitor and provide patients antipsychotic medications at the facility.
--- NOTE | 2023-03-08 09:01 | NUR ---
Dr. Arcos gave an order to D/C hold and D/C to [facility] and to follow up with the primary doctor. Dr. Arcos provided and prescription upon discharge.
--- NOTE | 2023-03-08 09:15 | NUR ---
GPS RN NOTE SEE BY DR. MELO
--- NOTE | 2023-03-08 09:20 | NUR ---
Called Adam at [phone] city administrator of [place] [facility], no answer and left a message about the discharge.
--- NOTE | 2023-03-08 13:30 | NUR ---
GPS NOTE PATIENT DISCHARGED AROUND 1325 ORDERED. PATIENT DENIES ANY SUICIDAL IDEATION, WELL AUDITORY OR VISUAL HALLUCINATION. PATIENT CLEARED BY DR. MELO FROM PSYCHIATRIC POINT AND DR. WAY FROM MEDICAL POINT OF VIEW. PATIENT PICKED UP BY FACILITY STAFF. HEALTH TEACHING DONE REGARDING DISCHARGE INSTRUCTIONS TO FACILITY STAFF. VERBALIZED UNDERSTANDING AND APPRECIATION. PATIENT ACCOMPANIED BY THIS NURSE TO LOBBY ON A WHEELCHAIR. ENDORSED DISCHARGE ACCORDINGLY.
== END 2023-03-08 13:25 | DRG 881 ==
LOC: ER 22:16 → GPS 02-27 08:22
PROVIDERS: ADMIT Psychiatry & Neurology Psychiatry; ATTEND Student in an Organized Health Care Education/Training Program
DX: F32.9 Major depressive disorder, single episode, unspecified (principal); F03.93 Unspecified dementia, unspecified severity, with mood disturbance; E44.0 Moderate protein-calorie malnutrition; G93.49 Other encephalopathy; H91.90 Unspecified hearing loss, unspecified ear; F20.9 Schizophrenia, unspecified; G40.909 Epilepsy, unspecified, not intractable, without status epilepticus; M19.90 Unspecified osteoarthritis, unspecified site; F17.200 Nicotine dependence, unspecified, uncomplicated; Z79.899 Other long term (current) drug therapy; K21.9 Gastro-esophageal reflux disease without esophagitis; F32.A Depression, unspecified; R73.9 Hyperglycemia, unspecified; E88.09 Other disorders of plasma-protein metabolism, not elsewhere classified; Z87.820 Personal history of traumatic brain injury; Z98.890 Other specified postprocedural states; Z73.6 Limitation of activities due to disability; Z91.199 Patient's noncompliance with other medical treatment and regimen due to unspecified reason
CPT/HCPCS: 36415; 71045-TC; 80048-TC; 80053-TC; 80061-TC; 80076-TC; 80164-TC; 81001; 82565-TC; 83605-TC; 85025-TC; 87081-TC; 92526; 92611-TC; G0480

== ENCOUNTER 2023-05-12 11:24 | Emergency (ER) | payer MEDICARE, OTHER ==
[~2023-05-12] VITALS: Ht 172.7 cm; Wt 71.7 kg
--- NOTE | 2023-05-12 12:54 | NUR ---
UNABLE TO INSEART MEL LINK, PT HARD PRISCA ALMARAZ NOTIFIED .
[2023-05-12 12:56] LABS: BASOPHILS # (AUTO) 0.1 K/uL (0.0-0.2); EOSINOPHILS % (AUTO) 1.9 % (0.0-6.0); HEMATOCRIT 41 % (39-51); HEMOGLOBIN 13.1 g/dL (13.5-17.5); LYMPHOCYTES # (AUTO) 1.7 K/uL (0.8-4.8); LYMPHOCYTES % (AUTO) 29.9 % (20.0-44.0); MEAN CORPUSCULAR HGB CONC 32 g/dl (31.0-36.0); MEAN CORPUSCULAR VOLUME 93 fL (80-96); MONOCYTES # (AUTO) 0.5 K/uL (0.1-1.30); NEUTROPHILS # (AUTO) 3.2 K/uL (1.8-8.9); NEUTROPHILS % (AUTO) 58.2 % (43.0-81.0); PLATELET COUNT (AUTO) 214 K/uL (150-450); RED BLOOD CELL COUNT(AUTO) 4.39 MIL/uL (4.5-6.0); WHITE BLOOD COUNT (AUTO) 5.6 K/uL (4.3-11.0)
--- NOTE | 2023-05-12 13:00 | NUR ---
PT IS COMBATIVE , REFUSED VSS
[2023-05-12 13:08] LABS: CARBON DIOXIDE 27 mmol/L (21-32); CHLORIDE 107 mmol/L (98-107); CREATININE 0.8 mg/dL (0.6-1.3); GLUCOSE 103 mg/dL (74-106); POTASSIUM 4.2 mmol/L (3.5-5.1); SODIUM SERUM 139 mmol/L (136-145); UREA NITROGEN, BLOOD 19 mg/dL (7-18)
--- NOTE | 2023-05-12 14:36 | NUR ---
[facility] ADVISES PT WAS DISCHARGED FROM HOS DUE TO PT LEAVING VIA 911. UNABLE TO REACCEPT PT WITHOUT READMISSION.
--- NOTE | 2023-05-12 15:12 | NUR ---
PT IS COMBATIVE , REFUSED VSS
--- NOTE | 2023-05-12 16:00 | NUR ---
pt combative , refused vss
--- NOTE | 2023-05-12 16:55 | NUR ---
CLINICALS FAXED TO [facility]
--- NOTE | 2023-05-12 17:00 | NUR ---
PT ACCEPTED [facility] - DR DOWNEY. [facility] CALL FOR AMBULANCE TRANSPORT.
--- NOTE | 2023-05-12 17:07 | NUR ---
[facility] 60 MIN ETA.
--- NOTE | 2023-05-12 17:46 | NUR ---
pt combative refused vss
--- NOTE | 2023-05-12 18:07 | NUR ---
Patient discharged too w[facility]ones in stable condition. Written and verbal after care instructions given. report given to EMT , pt left ER in stable condition .
[2023-05-12 18:12] VITALS: BP 133/82; TEMP 98.5
== END 2023-05-12 18:13 ==
LOC: ER 11:39
DX: R45.1 Restlessness and agitation (principal); H91.90 Unspecified hearing loss, unspecified ear; F99 Mental disorder, not otherwise specified; M19.90 Unspecified osteoarthritis, unspecified site; F31.9 Bipolar disorder, unspecified; F20.9 Schizophrenia, unspecified; F17.200 Nicotine dependence, unspecified, uncomplicated; Z79.899 Other long term (current) drug therapy; Z20.822 Contact with and (suspected) exposure to COVID-19
CPT/HCPCS: 99285; 71045; 87426; 93005; 85025; 80048; 36415; 84484; 83880; J7030; A4223; C9803